=== PATIENT | female | born 1960 | race African-American/Black ===

== ENCOUNTER 2017-12-10 11:02 | Inpatient (IN) | payer BC ==
[2017-12-10 14:05] VITALS: BMI 31.6
--- NOTE | 2017-12-10 18:09 | HP ---
COWS - Scale Resting Pulse: 0= [place] 80 or Below Sweatin=Flushed/Facial Moisture Restless Observation: 3= Extraneous Movement Pupil Size: 2= Moderately Dilated Bone or Joint Aches: 2= Severe Diffuse Aches Runny Nose/ Eye Tearin= Runny Nose/Eyes GI Upset > 30mins: 2= Nausea/Diarrhea Tremor Observation: 2= Slight Tremor Visible Yawning Observation: 1= 1-2x During Session Anxiety or Irritability: 2=Irritable/Anxious Goose Flesh Skin: 0=Smooth Skin COWS Score: 18 Admission ROS S - HPI Chief Complaint: i need help to stop using heroin Allergies/Adverse Reactions: Allergies Allergy/AdvReac Type Severity Reaction Status Date / Time No Known Allergies Allergy Verified 12/10/17 17:26 History of Present Illness: this 57 years old female with hroin dependence,seeking detox,withdrawal symptom, last treatment positive direction in 02/2018 htn on med nicotine dependence longest period sobriety 1 year - Ebola screening Have you traveled outside of the country in the last 21 days: No (N) Have you had contact with anyone from an Ebola affected area: No Have you been sick,other than usual withdrawal symptoms: No Do you have a fever: No - Review of Systems Constitutional: Chills, Loss of Appetite, Malaise, Night Sweats, Changes in sleep EENT: reports: Tearing, Nose Congestion Respiratory: reports: No Symptoms reported Cardiac: reports: Palpitations GI: reports: Diarrhea, Nausea, Vomiting, Abdominal cramping : reports: No Symptoms Reported Musculoskeletal: reports: Back Pain, Joint Pain, Muscle Pain, Joint Stiffness Integumentary: reports: Dryness Neuro: reports: Headache, Tremors Endocrine: reports: No Symptoms Reported Hematology: reports: No Symptoms Reported Psychiatric: reports: No Sypmtoms Reported, Judgement Intact, Mood/Affect Appropiate, Orientated x3 Patient History - Patient Medical History Hx Anemia: No Hx Asthma: No Hx Chronic Obstructive Pulmonary Disease (COPD): No Hx Cancer: No Hx Cardiac Disorders: No Hx Congestive Heart Failure: No Hx Hypertension: Yes (med) Hx Hypercholesterolemia: No Hx Pacemaker: No HX Cerebrovascular Accident: No Hx Seizures: No Hx Dementia: No Hx Diabetes: No Hx Gastrointestinal Disorders: No Hx Liver Disease: No Hx Genitourinary Disorders: No Hx Sexually Transmitted Disorders: No Hx Renal Disease (ESRD): No Hx Thyroid Disease: No Hx Human Immunodeficiency Virus (HIV): No (last 2017 negative) Hx Hepatitis C: No Hx Depression: Yes (no med) Hx Suicide Attempt: No Hx Bipolar Disorder: No Hx Schizophrenia: Yes Other Medical History: no suidical,no homicidal - Patient Surgical History Past Surgical History: No - PPD History Previous Implant?: Yes Documented Results: Negative w/o proof PPD to be Administered?: Yes - Reproductive History Patient : No - Smoking Cessation Smoking history: Never smoked Aproximately how many cigarettes per day: 20 Cigars Per Day: 0 Hx Chewing Tobacco Use: No Initiated information on smoking cessation: Yes 'Breaking Loose' booklet given: 12/10/17 - Substance & Tx. History Hx Alcohol Use: No Hx Substance Use: Yes Substance Use Type: Alcohol, Heroin Hx Substance Use Treatment: Yes (positive direction 02/23) - Substances Abused Heroin Route: Inhalation Frequency: Daily Amount used: 10bags Age of first use: 18 Date of Last Use: 12/08/17 Family Disease History - Family Disease History Family History: Denies Admission Physical Exam [facility] - Vital Signs Vital Signs: Vital Signs - 24 hr 12/10/17 12/10/17 14:02 17:09 Temperature 100.1 F H 100.1 F H Pulse Rate 75 75 Respiratory 18 18 Rate Blood Pressure 151/104 151/104 - Physical General Appearance: Yes: Moderate Distress, Intoxicated, Sweating, Anxious HEENTM: Yes: Normal ENT Inspection, Normocephalic, NAHEED Respiratory: Yes: Lungs Clear, Normal Breath Sounds, No Respiratory Distress Neck: Yes: Within Normal Limits, Supple, Trachea in good position Breast: Yes: Breast Exam Deferred Cardiology: Yes: Within Normal Limits, Regular Rhythm, Regular Rate, S1, S2 Abdominal: Yes: Within Normal Limits, Normal Bowel Sounds, Non Tender, Soft Genitourinary: Yes: Within Normal Limits Back: Yes: Muscle Spasm Musculoskeletal: Yes: Back pain, Joint Stiffness, Muscle Pain Extremities: Yes: Within Normal Limits, Normal Range of Motion, Tremors Neurological: Yes: technical associate II-XII NML intact, Fully Oriented, Alert, Motor Strength 5/5 Integumentary: Yes: Dry Lymphatic: Yes: Within Normal Limits - Diagnostic (1) Opioid dependence with withdrawal Current Visit: Yes Status: Acute (2) Essential hypertension Current Visit: Yes Status: Acute (3) Nicotine dependence Current Visit: Yes Status: Acute (4) Insomnia Current Visit: Yes Status: Acute (5) Anxiety and depression Current Visit: Yes Status: Acute Cleared for Admission [facility] - Detox or Rehab [facility] Level of Care: Medically Managed Detox Regimen/Protocol: Methadone [facility] Breath Alcohol Content Breath Alcohol Content: 0 Urine Pregancy Test - Result Urine Test Results: Negative- NO Line Present Urine Drug Screen - Results Drug Screen Negative: No Urine Drug Screen Results: OPI-Opiates, OXY-Oxycodone
[2017-12-10] MEDS ORDERED: MAGNESIUM HYDROX 2400MG/30ML ORAL SUSPENSION 30 ML CUP PO PRN (18:18)
[2017-12-10] MEDS ORDERED: ACETAMINOPHEN 325 MG TABLET (FP) PO PRN (18:18)
[2017-12-10] MEDS ORDERED: MAG HYDROX/AL HYDROX/SIMETH 30 ML UNIT-DOSE CUP PO PRN (18:18)
[2017-12-10] MEDS ORDERED: IBUPROFEN 400 MG TABLET (FP) PO PRN (18:18)
[2017-12-10] MEDS ORDERED: METHADONE HCL 10 MG TABLET (FOR DETOX USE ONLY) PO ONE ×2 (18:18→23:00)
[2017-12-10] MEDS ORDERED: MENTHOL/PHENOL 1 EACH UD MM PRN (18:18)
[2017-12-10] MEDS ORDERED: guaiFENesin/D-METHORPHAN HB 10 ML UNIT-DOSE CUPS PO PRN (18:18)
[2017-12-10] MEDS ORDERED: hydrOXYzine PAMOATE 50 MG CAPSULE (FP) PO PRN (18:18)
[2017-12-10] MEDS ORDERED: MAGNESIUM CITRATE 300 ML BOTTLE PO PRN (18:18)
[2017-12-10] MEDS ORDERED: LOPERAMIDE HCL 2 MG CAPSULE PO PRN (18:18)
[2017-12-10] MEDS ORDERED: P-EPHED 60MG/TRIPROLIDI 2.5MG TABLET PO PRN (18:18)
[2017-12-10] MEDS: diazePAM 5 MG TABLET PO PRN (19:18)
[2017-12-10] MEDS: HYDROCHLOROTHIAZIDE 12.5 MG CAPSULE (FP) PO SCH (19:18)
[2017-12-10] MEDS: NICOTINE 21 MG/24 HOURS TOPICAL PATCH TD SCH (19:20)
[2017-12-10] MEDS: THIAMINE HCL 100 MG TABLET (FP) PO SCH (23:02)
[2017-12-11] MEDS ORDERED: METHADONE HCL 10 MG TABLET (FOR DETOX USE ONLY) PO ONE (10:00)
[2017-12-11] MEDS: NICOTINE 21 MG/24 HOURS TOPICAL PATCH TD SCH (10:23)
[2017-12-11] MEDS: PRENATAL VITAMINS W/ FOLIC ACID TABLET (FP) PO SCH (10:23)
[2017-12-11] MEDS: HYDROCHLOROTHIAZIDE 12.5 MG CAPSULE (FP) PO SCH (10:23)
[2017-12-11 10:30] LABS: URINE APPEARANCE TURBID; URINE BILIRUBIN NEGATIVE (NEGATIVE); URINE BLOOD 2+ (NEGATIVE); URINE COLOR YELLOW; URINE GLUCOSE (UA) NEGATIVE (NEGATIVE); URINE KETONE NEGATIVE (NEGATIVE); URINE LEUK ESTERASE TRACE (NEGATIVE); URINE NITRITE NEGATIVE (NEGATIVE); URINE PROTEIN NEGATIVE (NEGATIVE)
[2017-12-11 10:36] LABS: EPI CELLS MODERATE /HPF (FEW); URINE BACTERIA MODERATE /hpf (NONE SEEN); URINE MUCUS FEW; YEAST MANY
[2017-12-11 10:40] LABS: HEMATOCRIT 40.2 % (32.4-45.2); HEMOGLOBIN 13.4 GM/dL (10.7-15.3); MCHC 33.3 g/dl (32.0-36.0); MEAN CELL VOLUME 93.1 fl (80-96); MEAN PLT VOLUME 8.6 fl (7.5-11.1); PLATELET COUNT 316 K/MM3 (134-434); RBC 4.31 M/mm3 (3.60-5.2); RDW 14.6 % (11.6-15.6); WHITE BLOOD COUNT 11.7 K/mm3 (4.0-10.0)
[2017-12-11 10:45] LABS: ALBUMIN 3.4 g/dl (3.4-5.0); ANION GAP 14 (8-16); BLOOD UREA NITROGEN 11 mg/dL (7-18); CALCIUM 9.3 mg/dL (8.5-10.1); CHLORIDE 100 mmol/L (98-107); CO2 25 mmol/L (21-32); GLUCOSE,RANDOM 98 mg/dL (74-106); POTASSIUM 3.6 mmol/L (3.5-5.1); SGPT/ALT 11 U/L (12-78); SODIUM 139 mmol/L (136-145)
[2017-12-11 10:47] LABS: ALK PHOS 68 U/L (45-117); BILIRUBIN,TOTAL 0.8 mg/dL (0.2-1.0); CREATININE 0.9 mg/dL (0.55-1.02); SGOT/AST 11 U/L (15-37); TOT PROT 8.1 g/dl (6.4-8.2)
--- NOTE | 2017-12-11 11:50 | CONSULT ---
[facility] Psychiatric Consult - Data Date of interview: 12/11/17 Admission source: Self-referred Identifying data: Ms Schwab is a 57 years old Black female, mother of a 36 years old daughter, unemployed, domiciled living with her seeking detox treatment for heroin Substance Abuse History: Reports history of heroin use. She started using heroin at age 18, consumes 10 bags daily. Last used on 12/08/17 Medical History: Significant for hypertension. Smokes cigarettes 1ppd Psychiatric History: Patient is very irritable, superficially cooperative saying :" Everytime I'm trying to sleep, someone comes to disturb me". Reports being diagnosed with Schizophrenia with One previous psychiatric admission in [address] [facility] in [place], [place]. Reports receiving OPD care at [facility] and she is prescribed Depakote 500 mg po HS , Cogentin 1 mg po daily and Risperdal 1 mg po daily. As per pharmacy claims, scripts for Risperdal 1 mg #30 filled on 06/08/17, Depakote 500 mg #30 filled on 11/24/17 & Cogentin 1 mg # 30 filled on 10/25/17. At present, patient is very irritable but reports sleeping well Physical/Sexual Abuse/Trauma History: Denies history of emotional, physical or sexual abuse as well as DV relationship Additional Comment: Denies criminal history Mental Status Exam - Mental Status Exam Alert and Oriented to: Time, Place, Person Cognitive Function: Fair Patient Appearance: Well Groomed Mood: Irritable Affect: Appropriate Patient Behavior: Uncooperative Speech Pattern: Clear Voice Loudness: Normal Thought Process: Intact, Goal Oriented Hallucinations: Denies Suicidal Ideation: Denies Homicidal Ideation: Denies Insight/Judgement: Poor Sleep: Well Appetite: Good Muscle strength/Tone: Normal Gait/Station: Normal Psychiatric Findings - Problem List (Aldrich 1, 2,3) (1) Schizophrenia Current Visit: Yes Status: Chronic (2) Substance induced mood disorder Current Visit: Yes Status: Acute (3) Opioid dependence with withdrawal Current Visit: Yes Status: Acute (4) Nicotine dependence Current Visit: Yes Status: Chronic (5) Essential hypertension Current Visit: Yes Status: Chronic - Initial Treatment Plan Initial Treatment Plan: 1) Start Risperdal 1 mg po daily, Cogentin 1 mg po daily and Depakote 500mg po HS. 2) Continue inpatient detoxification
--- NOTE | 2017-12-11 12:54 | PN ---
S COWS - Scale Resting Pulse: 0= [place] 80 or Below Sweatin= Chills/Flushing Restless Observation: 1= Difficult to Sit Still Pupil Size: 1= Pupils >than Normal Bone or Joint Aches: 2= Severe Diffuse Aches Runny Nose/ Eye Tearin= Runny Nose/Eyes GI Upset > 30mins: 1= Stomach Cramp Tremor Observation of Outstretched Hands: 2= Slight Tremor Visible Yawning Observation: 2= >3x During Session Anxiety or Irritability: 2=Irritable/Anxious Goose Flesh Skin: 0=Smooth Skin COWS Score: 14 S Progress Note (SOAP) Subjective: sweat, tremor, anxiety, restlessness, gi distress, Objective: 12/11/17 12:52 Vital Signs Temperature 98 F 12/11/17 10:46 Pulse Rate 80 12/11/17 10:46 Respiratory Rate 16 12/11/17 10:46 Blood Pressure 147/93 12/11/17 10:46 O2 Sat by Pulse Oximetry (%) Laboratory Last Values WBC 11.7 K/mm3 (4.0-10.0) H 12/11/17 08:00 RBC 4.31 M/mm3 (3.60-5.2) 12/11/17 08:00 Hgb 13.4 GM/dL (10.7-15.3) 12/11/17 08:00 Hct 40.2 % (32.4-45.2) 12/11/17 08:00 MCV 93.1 fl (80-96) 12/11/17 08:00 MCH 31.0 pg (25.7-33.7) 12/11/17 08:00 MCHC 33.3 g/dl (32.0-36.0) 12/11/17 08:00 RDW 14.6 % (11.6-15.6) 12/11/17 08:00 Plt Count 316 K/MM3 (134-434) 12/11/17 08:00 MPV 8.6 fl (7.5-11.1) 12/11/17 08:00 Sodium 139 mmol/L (136-145) 12/11/17 08:00 Potassium 3.6 mmol/L (3.5-5.1) 12/11/17 08:00 Chloride 100 mmol/L (98-107) 12/11/17 08:00 Carbon Dioxide 25 mmol/L (21-32) 12/11/17 08:00 Anion Gap 14 (8-16) 12/11/17 08:00 BUN 11 mg/dL (7-18) 12/11/17 08:00 Creatinine 0.9 mg/dL (0.55-1.02) 12/11/17 08:00 Creat Clearance w eGFR > 60 (>60) 12/11/17 08:00 Random Glucose 98 mg/dL (74-106) 12/11/17 08:00 Calcium 9.3 mg/dL (8.5-10.1) 12/11/17 08:00 Total Bilirubin 0.8 mg/dL (0.2-1.0) 12/11/17 08:00 AST 11 U/L (15-37) L 12/11/17 08:00 ALT 11 U/L (12-78) L 12/11/17 08:00 Alkaline Phosphatase 68 U/L (45-117) 12/11/17 08:00 Total Protein 8.1 g/dl (6.4-8.2) 12/11/17 08:00 Albumin 3.4 g/dl (3.4-5.0) 12/11/17 08:00 Urine Color Yellow 12/11/17 09:30 Urine Appearance Turbid 12/11/17 09:30 Urine pH 5.0 (5.0-8.0) 12/11/17 09:30 Ur Specific [place] 1.028 (1.001-1.035) 12/11/17 09:30 Urine Protein Negative (NEGATIVE) 12/11/17 09:30 Urine Glucose (UA) Negative (NEGATIVE) 12/11/17 09:30 Urine Ketones Negative (NEGATIVE) 12/11/17 09:30 Urine Blood 2+ (NEGATIVE) H 12/11/17 09:30 Urine Nitrite Negative (NEGATIVE) 12/11/17 09:30 Urine Bilirubin Negative (NEGATIVE) 12/11/17 09:30 Urine Urobilinogen 2.0 mg/dL (0.2-1.0) H 12/11/17 09:30 Ur Leukocyte Esterase Trace (NEGATIVE) 12/11/17 09:30 Urine WBC (Auto) 41 /hpf (3-5) 12/11/17 09:30 Urine RBC (Auto) 48 /hpf (0-3) 12/11/17 09:30 Ur Epithelial Cells Moderate /HPF (FEW) 12/11/17 09:30 Urine Bacteria Moderate /hpf (NONE SEEN) 12/11/17 09:30 Urine Mucus Few 12/11/17 09:30 Urine Yeast Many 12/11/17 09:30 lab noted Assessment: 12/11/17 12:53 withdrawal sx Plan: continue detox
--- NOTE | 2017-12-11 14:28 | EKG ---
Test Reason : Blood Pressure : / mmHG Vent. Rate : 072 BPM Atrial Rate : 072 BPM P-R Int : 182 ms QRS Dur : 080 ms QT Int : 324 ms P-R-T Axes : 060 063 039 degrees QTc Int : 354 ms SINUS RHYTHM WITH SINUS ARRHYTHMIA WITH OCCASIONAL PREMATURE VENTRICULAR COMPLEXES POSSIBLE LEFT ATRIAL ENLARGEMENT NONSPECIFIC T WAVE ABNORMALITY ABNORMAL ECG NO PREVIOUS ECGS AVAILABLE Confirmed by MD NEO, ZUHAIR ([id number]) on 12/11/2017 2:28:17 PM Referred By: Jarad Gimenez Confirmed By:ZUHAIR LARSON MD
[2017-12-11] MEDS: DIVALPROEX SODIUM 500 MG TABLET E.C. PO SCH (22:22)
[2017-12-11] MEDS: diazePAM 5 MG TABLET PO PRN (22:22)
[2017-12-11] MEDS: THIAMINE HCL 100 MG TABLET (FP) PO SCH (22:22)
[2017-12-12] MEDS ORDERED: METHADONE HCL 5 MG TABLET (FOR DETOX USE ONLY) PO ONE (10:00)
--- NOTE | 2017-12-12 10:34 | PN ---
S COWS - Scale Resting Pulse: 0= [place] 80 or Below Sweatin= Chills/Flushing Restless Observation: 1= Difficult to Sit Still Pupil Size: 1= Pupils >than Normal Bone or Joint Aches: 2= Severe Diffuse Aches Runny Nose/ Eye Tearin= Nasal Congestion GI Upset > 30mins: 1= Stomach Cramp Tremor Observation of Outstretched Hands: 1= Tremor [place], Not Seen Yawning Observation: 2= >3x During Session Anxiety or Irritability: 2=Irritable/Anxious Goose Flesh Skin: 0=Smooth Skin COWS Score: 12 S Progress Note (SOAP) Subjective: general body aches stuffy nose sweat mild tremor anxiety restlessness Objective: 12/12/17 10:36 Vital Signs Temperature 98.6 F 12/12/17 06:00 Pulse Rate 65 12/12/17 06:00 Respiratory Rate 18 12/12/17 06:00 Blood Pressure 127/76 12/12/17 06:00 O2 Sat by Pulse Oximetry (%) Laboratory Last Values WBC 11.7 K/mm3 (4.0-10.0) H 12/11/17 08:00 RBC 4.31 M/mm3 (3.60-5.2) 12/11/17 08:00 Hgb 13.4 GM/dL (10.7-15.3) 12/11/17 08:00 Hct 40.2 % (32.4-45.2) 12/11/17 08:00 MCV 93.1 fl (80-96) 12/11/17 08:00 MCH 31.0 pg (25.7-33.7) 12/11/17 08:00 MCHC 33.3 g/dl (32.0-36.0) 12/11/17 08:00 RDW 14.6 % (11.6-15.6) 12/11/17 08:00 Plt Count 316 K/MM3 (134-434) 12/11/17 08:00 MPV 8.6 fl (7.5-11.1) 12/11/17 08:00 Sodium 139 mmol/L (136-145) 12/11/17 08:00 Potassium 3.6 mmol/L (3.5-5.1) 12/11/17 08:00 Chloride 100 mmol/L (98-107) 12/11/17 08:00 Carbon Dioxide 25 mmol/L (21-32) 12/11/17 08:00 Anion Gap 14 (8-16) 12/11/17 08:00 BUN 11 mg/dL (7-18) 12/11/17 08:00 Creatinine 0.9 mg/dL (0.55-1.02) 12/11/17 08:00 Creat Clearance w eGFR > 60 (>60) 12/11/17 08:00 Random Glucose 98 mg/dL (74-106) 12/11/17 08:00 Calcium 9.3 mg/dL (8.5-10.1) 12/11/17 08:00 Total Bilirubin 0.8 mg/dL (0.2-1.0) 12/11/17 08:00 AST 11 U/L (15-37) L 12/11/17 08:00 ALT 11 U/L (12-78) L 12/11/17 08:00 Alkaline Phosphatase 68 U/L (45-117) 12/11/17 08:00 Total Protein 8.1 g/dl (6.4-8.2) 12/11/17 08:00 Albumin 3.4 g/dl (3.4-5.0) 12/11/17 08:00 Urine Color Yellow 12/11/17 09:30 Urine Appearance Turbid 12/11/17 09:30 Urine pH 5.0 (5.0-8.0) 12/11/17 09:30 Ur Specific [place] 1.028 (1.001-1.035) 12/11/17 09:30 Urine Protein Negative (NEGATIVE) 12/11/17 09:30 Urine Glucose (UA) Negative (NEGATIVE) 12/11/17 09:30 Urine Ketones Negative (NEGATIVE) 12/11/17 09:30 Urine Blood 2+ (NEGATIVE) H 12/11/17 09:30 Urine Nitrite Negative (NEGATIVE) 12/11/17 09:30 Urine Bilirubin Negative (NEGATIVE) 12/11/17 09:30 Urine Urobilinogen 2.0 mg/dL (0.2-1.0) H 12/11/17 09:30 Ur Leukocyte Esterase Trace (NEGATIVE) 12/11/17 09:30 Urine WBC (Auto) 41 /hpf (3-5) 12/11/17 09:30 Urine RBC (Auto) 48 /hpf (0-3) 12/11/17 09:30 Ur Epithelial Cells Moderate /HPF (FEW) 12/11/17 09:30 Urine Bacteria Moderate /hpf (NONE SEEN) 12/11/17 09:30 Urine Mucus Few 12/11/17 09:30 Urine Yeast Many 12/11/17 09:30 RPR Titer Nonreactive (NONREACTIVE) 12/11/17 08:00 lab noted repeat ua Assessment: 12/12/17 10:38 withdrawal sx Plan: continue detox
--- NOTE | 2017-12-12 10:52 | EKG ---
Test Reason : Blood Pressure : / mmHG Vent. Rate : 071 BPM Atrial Rate : 071 BPM P-R Int : 202 ms QRS Dur : 080 ms QT Int : 388 ms P-R-T Axes : 073 072 060 degrees QTc Int : 421 ms NORMAL SINUS RHYTHM WHEN COMPARED WITH ECG OF 10-DEC-2017 19:23, PREMATURE VENTRICULAR COMPLEXES ARE NO LONGER PRESENT Confirmed by ZENA AVILA MD ([id number]) on 12/12/2017 10:51:53 AM Referred By: Jarad Gimenez Confirmed By:ZENA AVILA MD
[2017-12-12] MEDS: BENZTROPINE MESYLATE 1 MG TABLET (FP) PO SCH (10:57)
[2017-12-12] MEDS: diazePAM 5 MG TABLET PO PRN (10:57)
[2017-12-12] MEDS: HYDROCHLOROTHIAZIDE 12.5 MG CAPSULE (FP) PO SCH (10:57)
[2017-12-12] MEDS: PRENATAL VITAMINS W/ FOLIC ACID TABLET (FP) PO SCH (10:57)
[2017-12-12] MEDS: risperiDONE 1 MG TABLET (FP) PO SCH (10:58)
[2017-12-12] MEDS: NICOTINE 21 MG/24 HOURS TOPICAL PATCH TD SCH (11:00)
[2017-12-12] MEDS: THIAMINE HCL 100 MG TABLET (FP) PO SCH (22:16)
[2017-12-12] MEDS: DIVALPROEX SODIUM 500 MG TABLET E.C. PO SCH (22:16)
[2017-12-12 22:44] LABS: URINE APPEARANCE SLCLOUDY; URINE BILIRUBIN NEGATIVE (NEGATIVE); URINE BLOOD NEGATIVE (NEGATIVE); URINE COLOR DKYELLOW; URINE GLUCOSE (UA) NEGATIVE (NEGATIVE); URINE KETONE NEGATIVE (NEGATIVE); URINE LEUK ESTERASE TRACE (NEGATIVE); URINE NITRITE NEGATIVE (NEGATIVE); URINE PROTEIN NEGATIVE (NEGATIVE)
[2017-12-12 22:57] LABS: EPI CELLS FEW /HPF (FEW); URINE BACTERIA MODERATE /hpf (NONE SEEN); URINE MUCUS MODERATE
[2017-12-13 06:52] VITALS: BP 96/55; PULSE 62; TEMP 98.8
[2017-12-13] MEDS: BENZTROPINE MESYLATE 1 MG TABLET (FP) PO SCH (09:25)
[2017-12-13] MEDS: PRENATAL VITAMINS W/ FOLIC ACID TABLET (FP) PO SCH (09:25)
[2017-12-13] MEDS: risperiDONE 1 MG TABLET (FP) PO SCH (09:25)
[2017-12-13] MEDS: HYDROCHLOROTHIAZIDE 12.5 MG CAPSULE (FP) PO SCH (09:25)
--- NOTE | 2017-12-13 09:52 | DS ---
[facility] Detox Discharge Summary Admission Date: 12/10/17 Discharge Date: 12/13/17 - History Present History: Opioid Dependence Additional Comments: patient is alert oriented x 3 coherent no acute distress patient insists to terminate detox treatment encourage community self support meeting and group to maintain sober - Physical Exam Results Vital Signs: Vital Signs Temperature 98.8 F 12/13/17 06:00 Pulse Rate 62 12/13/17 06:00 Respiratory Rate 18 12/13/17 06:00 Blood Pressure 96/55 12/13/17 06:00 O2 Sat by Pulse Oximetry (%) Pertinent Admission Physical Exam Findings: withdrawal sx Vital Signs Temperature 98.8 F 12/13/17 06:00 Pulse Rate 62 12/13/17 06:00 Respiratory Rate 18 12/13/17 06:00 Blood Pressure 96/55 12/13/17 06:00 O2 Sat by Pulse Oximetry (%) Laboratory Last Values WBC 11.7 K/mm3 (4.0-10.0) H 12/11/17 08:00 RBC 4.31 M/mm3 (3.60-5.2) 12/11/17 08:00 Hgb 13.4 GM/dL (10.7-15.3) 12/11/17 08:00 Hct 40.2 % (32.4-45.2) 12/11/17 08:00 MCV 93.1 fl (80-96) 12/11/17 08:00 MCH 31.0 pg (25.7-33.7) 12/11/17 08:00 MCHC 33.3 g/dl (32.0-36.0) 12/11/17 08:00 RDW 14.6 % (11.6-15.6) 12/11/17 08:00 Plt Count 316 K/MM3 (134-434) 12/11/17 08:00 MPV 8.6 fl (7.5-11.1) 12/11/17 08:00 Sodium 139 mmol/L (136-145) 12/11/17 08:00 Potassium 3.6 mmol/L (3.5-5.1) 12/11/17 08:00 Chloride 100 mmol/L (98-107) 12/11/17 08:00 Carbon Dioxide 25 mmol/L (21-32) 12/11/17 08:00 Anion Gap 14 (8-16) 12/11/17 08:00 BUN 11 mg/dL (7-18) 12/11/17 08:00 Creatinine 0.9 mg/dL (0.55-1.02) 12/11/17 08:00 Creat Clearance w eGFR > 60 (>60) 12/11/17 08:00 Random Glucose 98 mg/dL (74-106) 12/11/17 08:00 Calcium 9.3 mg/dL (8.5-10.1) 12/11/17 08:00 Total Bilirubin 0.8 mg/dL (0.2-1.0) 12/11/17 08:00 AST 11 U/L (15-37) L 12/11/17 08:00 ALT 11 U/L (12-78) L 12/11/17 08:00 Alkaline Phosphatase 68 U/L (45-117) 12/11/17 08:00 Total Protein 8.1 g/dl (6.4-8.2) 12/11/17 08:00 Albumin 3.4 g/dl (3.4-5.0) 12/11/17 08:00 Urine Color Dkyellow 12/12/17 17:00 Urine Appearance Slcloudy 12/12/17 17:00 Urine pH 5.0 (5.0-8.0) 12/12/17 17:00 Ur Specific [place] 1.023 (1.001-1.035) 12/12/17 17:00 Urine Protein Negative (NEGATIVE) 12/12/17 17:00 Urine Glucose (UA) Negative (NEGATIVE) 12/12/17 17:00 Urine Ketones Negative (NEGATIVE) 12/12/17 17:00 Urine Blood Negative (NEGATIVE) 12/12/17 17:00 Urine Nitrite Negative (NEGATIVE) 12/12/17 17:00 Urine Bilirubin Negative (NEGATIVE) 12/12/17 17:00 Urine Urobilinogen 2.0 mg/dL (0.2-1.0) H 12/12/17 17:00 Ur Leukocyte Esterase Trace (NEGATIVE) 12/12/17 17:00 Urine WBC (Auto) 3 /hpf (3-5) 12/12/17 17:00 Urine RBC (Auto) 4 /hpf (0-3) 12/12/17 17:00 Ur Epithelial Cells Few /HPF (FEW) 12/12/17 17:00 Urine Bacteria Moderate /hpf (NONE SEEN) 12/12/17 17:00 Urine Mucus Moderate 12/12/17 17:00 Urine Yeast Many 12/11/17 09:30 RPR Titer Nonreactive (NONREACTIVE) 12/11/17 08:00 lab noted - Treatment Hospital Course: Detox Protocol Followed, Responded well Patient has Accepted a Rehab Referral to: refused - Medication Discharge Medications: Ambulatory Orders Benztropine Mesylate [Cogentin -] 1 mg PO DAILY 12/10/17 Divalproex [Depakote -] 500 mg PO HS 12/10/17 Risperidone 1 mg PO DAILY 12/10/17 Hydrochlorothiazide [Hctz -] 12.5 mg PO DAILY #30 cap 12/13/17 - Diagnosis (1) Opioid dependence with withdrawal Current Visit: Yes Status: Acute (2) Essential hypertension Current Visit: Yes Status: Chronic (3) Schizophrenia Current Visit: Yes Status: Suspected Qualifiers: Schizophrenia type: other Qualified Code(s): F20.89 - Other schizophrenia; F20.8 - Other schizophrenia - AMA Did Patient Leave Against Medical Advice: Yes
[2017-12-13] MEDS ORDERED: METHADONE HCL 5 MG TABLET (FOR DETOX USE ONLY) PO ONE (10:00)
[2017-12-14] MEDS ORDERED: METHADONE HCL 10 MG TABLET (FOR DETOX USE ONLY) PO ONE (10:00)
[2017-12-15] MEDS ORDERED: METHADONE HCL 5 MG TABLET (FOR DETOX USE ONLY) PO ONE (06:00)
== END 2017-12-13 09:58 | disposition left against medical advice (07) | DRG 894 ==
LOC: YASAS 11:02 → Y6N 18:21
PROVIDERS: ADMIT Internal Medicine; ATTEND Internal Medicine
PROC: HZ2ZZZZ Detoxification Services for Substance Abuse Treatment (ICD-10-PCS; principal; 2017-12-10)
DX: F11.23 Opioid dependence with withdrawal (principal); F20.89 Other schizophrenia; F17.210 Nicotine dependence, cigarettes, uncomplicated; F19.24 Other psychoactive substance dependence with psychoactive substance-induced mood disorder; F41.8 Other specified anxiety disorders; I10 Essential (primary) hypertension; G47.00 Insomnia, unspecified
CPT/HCPCS: 36415; 80053; 81003; 81015; 85027; 86593; 93005; 93010; J2794